=== PATIENT | male | born 1960 | race African-American/Black ===

== ENCOUNTER 2024-01-31 23:57 | Emergency (ER) | payer BC ==
[~2024-01-31] VITALS: Ht 172.7 cm; Wt 87.0 kg
[2024-02-01] VITALS: O2SAT 98
[2024-02-01 01:35] LABS: BASOPHILS % 0.5 % (0.0-2.0); EOSINOPHILS % 1.8 % (0.0-5.0); HEMATOCRIT. 31.6 % (42.0-52.0); HEMOGLOBIN. 10.1 g/dL (14.0-18.0); LYMPHOCYTES % 37.1 % (20.0-50.0); MEAN CORPUSCULAR HGB CONC 32.1 g/dL (31.0-37.0); MEAN CORPUSCULAR VOLUME 87.1 fL (80.0-94.0); MEAN PLATELET VOLUME 10.2 fl (7.4-10.4); MONOCYTES % 13.1 % (2.0-8.0); NEUTROPHILS % 47.5 % (40.0-76.0); PLATELET 230 x1000/uL (130-400); RED BLOOD CELL COUNT 3.63 mill/uL (4.7-6.1); RED CELL DISTRIBUTION WIDTH 12.6 % (11.6-14.6)
[2024-02-01 01:43] LABS: CHLORIDE 103 mEq/L (98-107); POTASSIUM 4.4 mEq/L (3.5-5.1); SODIUM 136 mEq/L (136-145)
[2024-02-01 01:44] LABS: CALCIUM 9.2 mg/dL (8.7-10.4); CARBON DIOXIDE 27 mEq/L (21-32)
[2024-02-01 01:48] LABS: INR 0.9; PARTIAL THROMBOPLASTIN TIME 24.1 sec (23.4-31.0); PROTHROMBIN TIME 10.6 sec (9.6-11.0)
[2024-02-01 01:49] LABS: CREATININE 1.5 mg/dL (0.6-1.3); GLUCOSE 195 mg/dL (70-105); UREA NITROGEN BLOOD 19 mg/dL (9-23)
[2024-02-01 01:51] LABS: TROPONIN I HIGH SENSITIVITY 9 ng/L (3.0-53)
[2024-02-01 02:03] LABS: ETHANOL BLOOD < 10 mg/dL (<10)
[2024-02-01] MEDS: ACETAMINOPHEN 325MG TABLET PO NR (03:42)
[2024-02-01] MEDS: MECLIZINE 12.5MG TABLET PO NR (03:42)
[2024-02-01 05:01] VITALS: BP 139/71; PULSE 78; RESP 16; TEMP 98.4
[2024-02-01] MEDS ORDERED: ONDA4TAB50 MT (05:40)
[2024-02-01] MEDS ORDERED: MECL-299 MT (05:40)
[2024-02-01] MEDS ORDERED: ACET-2708 MT (05:40)
[2024-02-01 05:56] LABS: CLARITY URINE CLEAR (CLEAR); COLOR URINE YELLOW (YELLOW); GLUCOSE URINE NEGATIVE (NEGATIVE); KETONES URINE NEGATIVE (NEGATIVE); LEUKOCYTE ESTERASE URINE NEGATIVE (NEGATIVE); NITRITE URINE NEGATIVE (NEGATIVE); OCCULT BLOOD URINE NEGATIVE (NEGATIVE); PH URINE 7.5 (4.5-8.0); PROTEIN URINE TRACE (NEGATIVE); SPECIFIC GRAVITY URINE 1.023 (1.005-1.030); UROBILINOGEN URINE 0.2 E.U./dL (0.2-1.0)
[2024-02-01 06:04] LABS: *AMPHETAMINES SCREEN URINE NEGATIVE (NEGATIVE); *BARBITURATES SCREEN URINE NEGATIVE (NEGATIVE); *BENZODIAZEPINES SCREEN URINE NEGATIVE (NEGATIVE); *COCAINE SCREEN URINE NEGATIVE (NEGATIVE); CANNABINOID URINE SCREEN NEGATIVE (NEGATIVE); ECSTASY MDMA SCREEN URINE NEGATIVE (NEGATIVE); METHADONE URINE SCREEN NEGATIVE (NEGATIVE); OPIATES URINE SCREEN NEGATIVE (NEGATIVE); PHENCYCLIDINE URINE SCREEN NEGATIVE (NEGATIVE)
[2024-02-01] MEDS ORDERED: IOHEXOL-350 100 ML BOTTLE ONE (06:48)
[2024-02-01 07:01] LABS: BACTERIA URINE NONE SEEN; RBC URINE 0-2 /hpf (0-2); SQUAMOUS EPITHELIAL CELL URINE NONE SEEN /lpf (RARE/1+); WBC URINE 0-2 /hpf (0-2)
== END 2024-02-01 08:07 | disposition home or self-care (01) ==
LOC: ER 02-01 00:05
DX: R42 Dizziness and giddiness (principal); R51.9 Headache, unspecified; E11.9 Type 2 diabetes mellitus without complications; I10 Essential (primary) hypertension; Z88.0 Allergy status to penicillin
CPT/HCPCS: 80305; 80048; 81003; 80320; 82962; 83880; 85025; 85610; 85730; 84484; 36415; 71045; 70496; 70498; 70450; 93005; 99285; Q9967; J8597; Z7610 ×2; G0480